=== PATIENT | female | born 1955 | race Caucasian/White ===

== ENCOUNTER → 2017-03-07 | Outpatient (CLI) | payer BC ==
[~2017-03-07] MED LIST: FLONASE16 G1 BOTH NARES; MULTIPLE VITAM1 EAC1 PO; VITAMIN D31000 UNIT PO; WELLBUTRIN XL150 MG PO
== END | disposition home or self-care (01) ==
LOC: CDC 10:10
DX: Z01.810 Encounter for preprocedural cardiovascular examination (principal)
CPT/HCPCS: 93000

== ENCOUNTER 2017-03-09 06:20 | Day surgery (SDC) | payer BC ==
[~2017-03-09] VITALS: Ht 162.6 cm; Wt 90.7 kg
[2017-03-09 06:46] VITALS: BP 123/64
[2017-03-09 10:00] VITALS: BP 140/72
[2017-03-09 10:50] VITALS: BP 152/68
== END 2017-03-09 10:53 | disposition home or self-care (01) ==
LOC: SDC 06:20
DX: N84.0 Polyp of corpus uteri (principal); E66.9 Obesity, unspecified; Z68.34 Body mass index [BMI] 34.0-34.9, adult; K64.8 Other hemorrhoids
CPT/HCPCS: 88305; J0690; J1100; J1885; J2250; J2405; J2710; J3010